=== PATIENT | female | born 1950 | race African-American/Black ===

== ENCOUNTER 2020-08-30 14:27 | Emergency (ER) | payer MEDICARE, MEDICAID ==
[~2020-08-30] VITALS: Ht 165.1 cm; Wt 78.0 kg
[2020-08-30] MEDS ORDERED: ONDANSETRON HCL 4MG/2ML INJ IV STA (16:25)
[2020-08-30] MEDS ORDERED: KETOROLAC 30MG/ML VIAL IV STA (16:25)
[2020-08-30] MEDS ORDERED: SODIUM CHLORIDE 0.9% 1,000 ML IV ONE (16:30)
[2020-08-30 17:08] LABS: HEMOGLOBIN. 12.4 g/dL (12.0-16.0); MEAN CORPUSCULAR HEMOGLOBIN 27.2 pg (28.0-32.0); MEAN CORPUSCULAR VOLUME 85.2 fL (81.0-99.0); MEAN PLATELET VOLUME 8.8 fl (7.4-10.4); PLATELET 291 x1000/uL (130-400); RED BLOOD CELL COUNT 4.57 mill/uL (4.2-5.4); RED CELL DISTRIBUTION WIDTH 14.9 % (11.6-14.6)
[2020-08-30 17:16] LABS: CHLORIDE 106 mEq/L (98-107)
[2020-08-30 17:34] LABS: PLATELET ESTIMATE NORMAL
[2020-08-30] MEDS ORDERED: POTASSIUM CHLORIDE 20MEQ TABLET SR PO ONE (17:45)
[2020-08-30 19:46] LABS: CLARITY URINE CLEAR (CLEAR); COLOR URINE YELLOW (YELLOW); KETONES URINE 3+ (NEGATIVE); LEUKOCYTE ESTERASE URINE NEGATIVE (NEGATIVE); NITRITE URINE NEGATIVE (NEGATIVE); OCCULT BLOOD URINE NEGATIVE (NEGATIVE); PH URINE 7.5 (4.5-8.0); PROTEIN URINE 1+ (NEGATIVE); UROBILINOGEN URINE 0.2 E.U./dL (0.2-1.0)
[2020-08-30] MEDS ORDERED: IBUP-2029 MT (20:27)
[2020-08-30] MEDS ORDERED: IBUPROFEN 600MG TABLET PO ONE (21:00)
[2020-08-30 21:01] VITALS: BP 150/76
== END 2020-08-30 21:03 | disposition home or self-care (01) ==
LOC: ER 14:51
DX: K57.30 Diverticulosis of large intestine without perforation or abscess without bleeding (principal); K44.9 Diaphragmatic hernia without obstruction or gangrene; E87.6 Hypokalemia; I10 Essential (primary) hypertension; E78.00 Pure hypercholesterolemia, unspecified
CPT/HCPCS: 36415; 74176; 80053; 81003; 83690; 85025; 93005; 96361; 96374; 96375; 99285; J1885; J2405; J7030

== ENCOUNTER → 2024-03-07 | Emergency (ER) | payer MEDICARE, MEDICAID ==
[~2024-03-07] VITALS: Ht 162.6 cm; Wt 55.0 kg
[~2024-03-07] MED LIST: ACET-2708 PO; AMLO5TAB88 PO; AMLODIPINE; DICL100G58 TP; GABA-532 MT; IBUP-2029 MT; MIRT7.5T11 PO; TRAM50TA3 PO
[2024-03-07 15:43] VITALS: O2SAT 98
[2024-03-07] MEDS: ACETAMINOPHEN 325MG TABLET PO NR (18:53)
[2024-03-07 20:30] VITALS: BP 148/79; PULSE 76; RESP 17; TEMP 36.66960; O2SAT 100
== END | disposition home or self-care (01) ==
LOC: ER 15:36
DX: G89.29 Other chronic pain (principal); M17.11 Unilateral primary osteoarthritis, right knee; M25.561 Pain in right knee; E78.00 Pure hypercholesterolemia, unspecified; I10 Essential (primary) hypertension; Z88.0 Allergy status to penicillin; Z88.5 Allergy status to narcotic agent; Z88.6 Allergy status to analgesic agent
CPT/HCPCS: 73562; 73590; 93971; 99284

== ENCOUNTER 2024-03-08 08:15 | Emergency (ER) | payer MEDICARE, MEDICAID ==
[~2024-03-08] VITALS: Ht 160 cm; Wt 58.0 kg
[~2024-03-08 08:15] MED LIST changes: -AMLO5TAB88 PO; -MIRT7.5T11 PO; -TRAM50TA3 PO
[2024-03-08 08:24] VITALS: BP 180/76; RESP 18; O2SAT 100
[2024-03-08 08:27] VITALS: PULSE 81; O2SAT 97
[2024-03-08 11:36] VITALS: TEMP 98.1
[2024-03-08] MEDS: ACETAMINOPHEN 325MG TABLET PO ONE (11:36)
[2024-03-10] MEDS ORDERED: TRAM50TA3 PO (02:06)
[2024-03-10] MEDS ORDERED: AMLO5TAB88 PO (02:06)
[2024-03-10] MEDS ORDERED: MIRT7.5T11 PO (02:06)
== END 2024-03-08 11:39 | disposition home or self-care (01) ==
LOC: ER 08:15
DX: G89.29 Other chronic pain (principal); M25.561 Pain in right knee; E78.00 Pure hypercholesterolemia, unspecified; I10 Essential (primary) hypertension; Z88.0 Allergy status to penicillin; Z88.1 Allergy status to other antibiotic agents; Z88.5 Allergy status to narcotic agent; Z96.651 Presence of right artificial knee joint; Z88.6 Allergy status to analgesic agent; Z59.00 Homelessness unspecified
CPT/HCPCS: 99282; 99283